=== PATIENT | male | born 1970 | race Caucasian/White ===

== ENCOUNTER → 2017-12-19 | Outpatient (CLI) | payer OTHER ==
--- NOTE | 2017-12-19 10:20 | DIAGNOSTIC IMAGING REPORT ---
CHEST 2 VIEWS ROUTINE CLINICAL HISTORY: Acute upper respiratory infection. Shortness of breath and cough. COMPARISON STUDY: No previous studies for comparison. FINDINGS: There is mild right upper lung airspace opacity which favors pneumonia. No cavitation or pleural effusion is noted. Left lung is clear. Cardiac size is normal. Mediastinal contours are normal. There is no evidence for pulmonary edema. IMPRESSION: Mild right upper lung airspace opacity which suggests pneumonia. Radiographic follow-up to ensure resolution is recommended. Electronically signed by: Hitesh Bobby M.D. 12/19/2017 10:19 AM Dictated Date/Time: 12/19/2017 10:17 AM
== END | disposition home or self-care (01) ==
LOC: C.RAD1850 10:01
PROVIDERS: ATTEND Student in an Organized Health Care Education/Training Program
DX: J06.9 Acute upper respiratory infection, unspecified (principal)

== ENCOUNTER → 2018-01-11 | Outpatient (CLI) | payer OTHER ==
--- NOTE | 2018-01-11 12:15 | DIAGNOSTIC IMAGING REPORT ---
CHEST 2 VIEWS ROUTINE HISTORY: 47 years-old Male J18.9 follow-up study in a patient with pneumonia COMPARISON: Chest radiographs 12/19/2017 TECHNIQUE: PA and lateral views of the chest FINDINGS: Cardiomediastinal and hilar silhouettes are within normal limits. There is no pneumothorax, pleural effusion, focal airspace consolidation or overt pulmonary edema. Previously described alveolar opacities of the right upper lobe are no longer identified. Bones of the chest appear grossly intact. IMPRESSION: Resolution of the previously described alveolar opacities of the right upper lobe. No acute process identified. The above report was generated using voice recognition software. It may contain grammatical, syntax or spelling errors. Electronically signed by: Zac Estrada M.D. 01/11/2018 12:13 PM Dictated Date/Time: 01/11/2018 12:12 PM
== END | disposition home or self-care (01) ==
LOC: C.RAD1850 11:59
PROVIDERS: ATTEND Student in an Organized Health Care Education/Training Program
DX: J18.9 Pneumonia, unspecified organism (principal)

== ENCOUNTER 2023-06-01 21:07 | Observation (INO) ==
--- NOTE | 2023-06-01 21:17 | Emergency Department Note ---
ED Provider Note History of Present Illness Chief Complaint: Illness Stated Complaint: LOSS APPETITE,STOMACH BUG,R SIDE PAIN Time Seen by Provider: 06/01/23 21:16 This is an otherwise healthy 53-year-old male accompanied by his who p resents to the emergency department with right lower abdominal pain and nausea. Symptoms began this morning. He states that he woke up and was feeling queasy. He did not want to eat much today and almost felt like he was going to throw up at one point, though he did not vomit. His queasiness ended up developing into 6 out of 10 right lower abdominal pain that is now constant in nature and worse when he presses on it. Also seems to be exacerbated when he changes position. He has had chills but no documented fevers. Has not had any diarrhea. He does not have any upper respiratory symptoms. No history of any abdominal surgeries. Recently completed the local [employer] triathlon and states that he was feeling very good over the past 2 days. He has been staying hydrated drinking plenty of fluids. Denies any dysuria, hematuria, difficulty urinating, scrotal swelling or testicular pain. Home Medications Medication Instructions Recorded Confirmed Type tamsulosin 0.4 mg capsule 0.4 mg PO HS 30 days #30 caps 08/12/22 06/01/23 Rx Allergies Allergy/AdvReac Type Severity Reaction Status Date / Time amoxicillin AdvReac Intermediate Vomiting Verified 06/01/23 22:13 sulfa drugs Allergy Intermediate Hives Uncoded 06/01/23 22:13 Past Med/Surg History Medical History BPH (benign prostatic hyperplasia) Surgical History H/O vasectomy History of reduction of closed dislocation LUE History of wisdom tooth extraction Family History Grandfather (Maternal) Prostate cancer Grandfather (Paternal) Stroke Mother Breast cancer Other No family history of adverse response to anesthesia Social History Smoking Status: Never smoker Second Hand Exposure: No; Do You Dip or Chew Tobacco: No; Hx Alcohol Use: Yes Alcohol type: beer Hx Substance Use: No Preferred Language: Sinhala Communication Ability: Effective [employer] Manager Required: No Beliefs That Will Affect Care: None marital status: Current Living Situation: Spouse Feels Safe at Home: Yes Assistive Devices: None Physical Exam Vital Signs Vital Signs - 24 hr 06/01/23 21:08 Temperature 99.3 F Temperature Source Oral Pulse Rate 82 Respiratory Rate 18 Respiratory Effort / Characteristics Non-Labored Spontaneous Respiratory Depth Normal Blood Pressure 149/92 H Blood Pressure Mean 111 Blood Pressure Position Sitting Pulse Oximetry 98 Oxygen Delivery Method Room Air Sepsis Recent Fever Within 48 Hours No Sepsis New/Unexplained Change in Mental Status No Sepsis Action Taken by Nursing No Action Required CONSTITUTIONAL: Well developed, well nourished, in no acute distress. HEAD: Normocephalic, atraumatic. EYES: conjunctivae normal, extraocular muscles intact. ENMT: External ears normal. Nose with normal external appearance, no congestion. Oral mucous membranes moist. Oropharynx normal. NECK: Full active range of motion. LYMPHATIC: No cervical adenopathy RESPIRATORY: Breathing unlabored and symmetric. Lungs clear to auscultation bilaterally. No wheeze, rales, or rhonchi. CARDIOVASCULAR: Regular rate and rhythm. No murmurs, rubs, or gallops. ABDOMEN: Normal bowel sounds. Abdomen is slightly rigid with some guarding especially with palpation in the right lower quadrant which is tender to palpation. Negative CVA tenderness bilaterally. Positive rebound tenderness. Negative straight leg raise, obturator, or Rovsing sign. MUSCULOSKELETAL: Moves all extremities at all joints without pain or difficulty. No cyanosis or edema. Back with full range of motion. SKIN: [place], warm, dry. NEUROLOGIC: Awake, alert, oriented. Gaze is conjugate. Face symmetric, speech normal. Moves head and all four extremities spontaneously. Sensation and strength grossly intact. PSYCHIATRIC: Appropriate. Normal affect Course Administered Medications Discontinued Medications Acetaminophen (Ofirmev) 1,000 mg in 100 mls @ 400 mls/hr IV NOW STA Stop: 06/01/23 21:48 Last Infusion: 06/01/23 22:46 Dose: 0 mls/hr Documented By: Admin: 06/01/23 21:44 Dose: 400 mls/hr Documented By: DEREK Sodium Chloride (Nss) 500 mls @ 999 mls/hr IV .Q31M ONE Stop: 06/01/23 22:04 Last Infusion: 06/01/23 22:46 Dose: 0 mls/hr Documented By: Admin: 06/01/23 21:45 Dose: 999 mls/hr Documented By: DEREK Ioversol (Optiray 320 100ml) 100 ml IV ONCE ONE Stop: 06/01/23 22:48 Last Admin: 06/01/23 22:48 Dose: 93 ml Documented By: DANIA Ondansetron HCl (Ondansetron Inj 2 Mg/Ml 2 Ml Vial) 4 mg IV NOW STA Stop: 06/01/23 21:35 Last Admin: 06/01/23 21:44 Dose: 4 mg Documented By: DEREK Medical Decision Making Differential Diagnosis Appendicitis, mesenteric adenitis, diverticulitis, hernia, muscle strain, gastroenteritis, UTI, renal colic, cholecystitis, cholelithiasis, doubt torsion, doubt epididymitis, among other pathology Medical Records Attestation: I reviewed the patient's medical records. Laboratory Data 06/01/23 21:28 06/01/23 21:28 Lab Results 06/01/23 06/01/23 Range/Units 21:28 21:28 WBC 14.23 H (4.8-10.8) K/ul RBC 4.95 (4.70-6.10) M/uL Hgb 15.7 (14.0-18.0) g/dl Hct 44.5 (42.0-52.0) % MCV 89.9 (80.0-100.0) fL MCH 31.7 (25.0-34.0) pg MCHC 35.3 (32.0-36.0) g/dL RDW Std Deviation 39.3 (36.4-46.3) fL RDW Coeff of Shama 11.9 (11.5-14.5) % Plt Count 253 (130-400) K/uL MPV 11.0 (9.4-12.4) fL Immature Gran % (Auto) 0.4 % Neut % (Auto) 81.3 % Lymph % (Auto) 9.4 % [place] % (Auto) 7.9 % Eos % (Auto) 0.7 % Baso % (Auto) 0.3 % Neut # (Auto) 11.57 H (1.40-6.50) K/uL Lymph # (Auto) 1.34 (1.2-3.4) K/uL [place] # (Auto) 1.12 H (0.11-0.59) K/uL Eos # (Auto) 0.10 (0-0.50) K/uL Baso # (Auto) 0.04 (0-0.2) K/uL Immature Gran # (Auto) 0.06 (0.01-0.20) K/uL Sodium 136 (136-145) mmol/L Potassium 3.7 (3.5-5.1) mmol/L Chloride 100 (98-107) mmol/L Carbon Dioxide 29 (21-32) mmol/L Anion Gap 7 (3-11) BUN 14 (6-23) mg/dl Creatinine 0.99 (0.6-1.4) mg/dl Est Cr Clr Drug Dosing 98.1 ml/min Est GFR ( Amer) 101.8 ml/min Est GFR (Non-Af Amer) 87.8 ml/min BUN/Creatinine Ratio 14.1 (10-20) Glucose 104 H (70-99(Fasting)) mg/dl Calcium 9.3 (8.6-10.3) mg/dl Total Bilirubin 1.0 (0.2-1.0) mg/dl AST 133 H (13-39) U/L ALT 63 H (7-52) U/L Alkaline Phosphatase 81 (34-104) U/L Total Protein 7.3 (6.0-8.3) gm/dl Albumin 4.3 (3.4-5.0) gm/dl Globulin 3.0 (2.5-4.0) gm/dl Albumin/Globulin Ratio 1.4 (0.9-2) Lipase 17 (11-82) U/L Imaging Data Radiologist's Impression: Abdomen/Pelvis CT 06/01/23 21:34 CR Exam(s): CT ABDOMEN + PELVIS With Contrast IV Amt: 93 ml optiray 320 EXAM: CT Abdomen and Pelvis With Intravenous Contrast CLINICAL HISTORY: Reason for exam: RLQ pain, nausea, tender in RLQ. TECHNIQUE: Axial computed tomography images of the abdomen and pelvis with intravenous contrast. CTDI is 24.51 mGy and DLP is 1301.23 mGy-cm. Automated exposure control was utilized for the study. A dose lowering technique was utilized adhering to the principles of ALARA. CONTRAST: Patient received 93 ml optiray 320 of IV contrast COMPARISON: No relevant prior studies available. FINDINGS: Lung bases: Unremarkable. No mass. No consolidation. ABDOMEN: Liver: Unremarkable. No mass. Gallbladder and bile ducts: Unremarkable. No calcified stones. No ductal dilation. Pancreas: Unremarkable. No mass. No ductal dilation. Spleen: Unremarkable. No splenomegaly. Adrenals: Unremarkable. No mass. Kidneys and ureters: Unremarkable. No solid mass. No hydronephrosis. Stomach and bowel: Unremarkable. No obstruction. No mucosal thickening. PELVIS: Appendix: Multiple appendicoliths noted throughout the appendix. The largest appendicolith proximally measures 11 mm in diameter. Immediately distal to the appendicolith, the appendix is dilated, measuring 11 mm with subtle periappendiceal fat stranding. Bladder: Mild trabeculation of the superior dome of the bladder. There is a posterior bladder diverticulum measuring 4.7 x 7.7 x 6 cm. The communicating neck measures 10 mm. Reproductive: Unremarkable as visualized. ABDOMEN and PELVIS: Intraperitoneal space: Unremarkable. No free air. No significant fluid collection. Bones/joints: No acute fracture. No dislocation. Soft tissues: Unremarkable. Vasculature: Unremarkable. No abdominal aortic aneurysm. Lymph nodes: Unremarkable. No enlarged lymph nodes. IMPRESSION: 1. Multiple appendicoliths noted throughout the appendix. The largest appendicolith proximally measures 11 mm in diameter. Immediately distal to the proximal appendicolith, the appendix is dilated, measuring 11 mm with subtle periappendiceal fat stranding. Findings are most consistent with acute appendicitis. No abscess or perforation. No bowel obstruction. 2. Mild trabeculation of the superior dome of the bladder. There is a posterior bladder diverticulum measuring 4.7 x 7.7 x 6 cm. The communicating neck measures 10 mm. Communications: Call Doctor Appendicitis Electronically signed by: Kimo Hernandez MD 06/01/23 22:59 PM [facility] Narrative He 53-year-old male presents to the emergency department with 1 day of GI upset, nausea, and this has developed into right lower abdominal pain with associated anorexia. Patient recently completed the [employer] triathlon. Overall he is well-appearing in no acute distress. He does involuntary guard his abdomen and has reproducible tenderness in the right lower quadrant. Temperature was 99.3 and he endorsed chills. An IV was inserted and labs were obtained. Gentle IV fluids were administered. He was offered pain medication and accepted Tylenol IV, declined anything stronger. He received Zofran for nausea. Labs demonstrate a leukocytosis at 14.23. No anemia. AST and ALT are mildly elevated at 133 and 63 respectively, nonspecific. Alkaline phosphatase and bilirubin are normal. Renal function is normal. Lipase is normal. CT abdomen and pelvis was obtained and initially interpreted by myself showing concern for possible appendicolith and inflammation in the area of the appendix. I then spoke with the reading radiologist who contacted me and confirmed appendicoliths and acute appendicitis. No evidence of perforation. Case was discussed with general surgery Dr. Ying who visualized his CT scan and will admit the patient overnight and see him first thing in the morning to discuss appendectomy. We discussed which antibiotics she would prefer given his allergy to amoxicillin, and she stated that she would order these. I discussed all this with the patient and he was agreeable. He did request a sm all dose of morphine given his pain. He remained hemodynamically stable. Impression Acute appendicitis Discharge Plan Visit Data Chief Complaint: Illness Stated Complaint: LOSS APPETITE,STOMACH BUG,R SIDE PAIN ED Provider: Marshal Ladd ED Midlevel Provider: Jaleel Brunner Discharge Problem: Acute appendicitis Patient Disposition: Admitted As Inpatient Forms Stand Alone Forms: My [facility] BI Prescriptions Prescriptions: No Action tamsulosin 0.4 mg capsule 0.4 mg PO HS 30 Days Qty: 30 11RF Referrals Referrals: Tammy Palmer [Primary Care Provider] -
[2023-06-01] MEDS ORDERED: ACETAMINOPHEN 1,000 MG/100 ML VIAL IV STA (21:34)
[2023-06-01] MEDS ORDERED: ONDANSETRON INJ 2 MG/ML 2 ML VIAL IV STA (21:34)
[2023-06-01] MEDS ORDERED: SODIUM CHLORIDE 0.9% 500 ML IV ONE (21:34)
[2023-06-01 22:06] LABS: Basophils # (auto) 0.04 K/uL (0-0.2); Basophils % (auto) 0.3 %; Eosinophils % (auto) 0.7 %; Hematocrit (blood only) 44.5 % (42.0-52.0); Hemoglobin 15.7 g/dl (14.0-18.0); Immature Granulocytes # (auto) 0.06 K/uL (0.01-0.20); Immature Granulocytes % (auto) 0.4 %; Lymphocytes # (auto) 1.34 K/uL (1.2-3.4); Lymphocytes % (auto) 9.4 %; Mean Corpuscular Hemoglobin 31.7 pg (25.0-34.0); Mean Corpuscular Hgb Conc 35.3 g/dL (32.0-36.0); Mean Corpuscular Volume 89.9 fL (80.0-100.0); Monocytes # (auto) 1.12 K/uL (0.11-0.59); Monocytes % (auto) 7.9 %; Neutrophils # (auto) 11.57 K/uL (1.40-6.50); Neutrophils % (auto) 81.3 %; Platelet Count 253 K/uL (130-400); RDW Coefficient of Variation 11.9 % (11.5-14.5); RDW Standard Deviation 39.3 fL (36.4-46.3); Red Blood Count 4.95 M/uL (4.70-6.10); White Blood Count 14.23 K/ul (4.8-10.8)
[2023-06-01 22:21] LABS: Albumin Level 4.3 gm/dl (3.4-5.0); Calcium 9.3 mg/dl (8.6-10.3); Potassium 3.7 mmol/L (3.5-5.1)
[2023-06-01 22:27] LABS: Albumin Globulin Ratio 1.4 (0.9-2); BUN Creatinine Ratio 14.1 (10-20); Creatinine Clr Calc Pharmacy 98.1 ml/min; Est GFR (African American) 101.8 ml/min; Est GFR (Non-African American) 87.8 ml/min; Total Protein 7.3 gm/dl (6.0-8.3)
[2023-06-01] MEDS ORDERED: OPTIRAY 320 100ml IV ONE (22:47)
--- NOTE | 2023-06-01 23:00 | CT Scan Report ---
Exam(s): CT ABDOMEN + PELVIS With Contrast IV Amt: 93 ml optiray 320 EXAM: CT Abdomen and Pelvis With Intravenous Contrast CLINICAL HISTORY: Reason for exam: RLQ pain, nausea, tender in RLQ. TECHNIQUE: Axial computed tomography images of the abdomen and pelvis with intravenous contrast. CTDI is 24.51 mGy and DLP is 1301.23 mGy-cm. Automated exposure control was utilized for the study. A dose lowering technique was utilized adhering to the principles of ALARA. CONTRAST: Patient received 93 ml optiray 320 of IV contrast COMPARISON: No relevant prior studies available. FINDINGS: Lung bases: Unremarkable. No mass. No consolidation. ABDOMEN: Liver: Unremarkable. No mass. Gallbladder and bile ducts: Unremarkable. No calcified stones. No ductal dilation. Pancreas: Unremarkable. No mass. No ductal dilation. Spleen: Unremarkable. No splenomegaly. Adrenals: Unremarkable. No mass. Kidneys and ureters: Unremarkable. No solid mass. No hydronephrosis. Stomach and bowel: Unremarkable. No obstruction. No mucosal thickening. PELVIS: Appendix: Multiple appendicoliths noted throughout the appendix. The largest appendicolith proximally measures 11 mm in diameter. Immediately distal to the appendicolith, the appendix is dilated, measuring 11 mm with subtle periappendiceal fat stranding. Bladder: Mild trabeculation of the superior dome of the bladder. There is a posterior bladder diverticulum measuring 4.7 x 7.7 x 6 cm. The communicating neck measures 10 mm. Reproductive: Unremarkable as visualized. ABDOMEN and PELVIS: Intraperitoneal space: Unremarkable. No free air. No significant fluid collection. Bones/joints: No acute fracture. No dislocation. Soft tissues: Unremarkable. Vasculature: Unremarkable. No abdominal aortic aneurysm. Lymph nodes: Unremarkable. No enlarged lymph nodes. IMPRESSION: 1. Multiple appendicoliths noted throughout the appendix. The largest appendicolith proximally measures 11 mm in diameter. Immediately distal to the proximal appendicolith, the appendix is dilated, measuring 11 mm with subtle periappendiceal fat stranding. Findings are most consistent with acute appendicitis. No abscess or perforation. No bowel obstruction. 2. Mild trabeculation of the superior dome of the bladder. There is a posterior bladder diverticulum measuring 4.7 x 7.7 x 6 cm. The communicating neck measures 10 mm. Communications: Call Doctor Appendicitis Electronically signed by: Kimo Hernandez MD 06/01/23 22:59 PM
[2023-06-01] MEDS ORDERED: MoRPHine SULFATE 2 MG/ML CARP IV STA (23:32)
[2023-06-02 00:50] LABS: Appearance Urine Clear (Clear); Bilirubin Urine Negative (Negative); Blood Urine Negative (Negative); Color Urine Yellow; Glucose Urine UA Negative (Negative); Ketones Urine Negative (Negative); Leukocyte Esterase Urine Negative (Negative); Nitrite Urine Negative (Negative); Protein Urine Negative (Negative); Specific Gravity Urine 1.012 (1.000-1.030); Urobilinogen Urine Negative (Negative)
[2023-06-02] MEDS ORDERED: ONDANSETRON INJ 2 MG/ML 2 ML VIAL IV PRN ×2 (01:50→08:35)
[2023-06-02] MEDS ORDERED: MoRPHine SULFATE 2 MG/ML CARP IV PRN (01:50)
[2023-06-02] MEDS ORDERED: MoRPHine SULFATE 4 MG/ML 1 ML CARP\\VIAL IV PRN (01:50)
[2023-06-02] MEDS ORDERED: LACTATED RINGER'S 1,000 ML IV SCH ×2 (01:50→11:16)
[2023-06-02] MEDS ORDERED: levoFLOXacin/D5W 750 MG/150 ML BAG IV SCH (02:00)
--- NOTE | 2023-06-02 07:57 | History & Physical Report ---
Date of Service June 02, 2023 Assessment & Plan (1) Acute appendicitis: Plan: 53 year-old male with 1 day history of right lower quadrant abdominal pain, nausea, anorexia with CT scan showing acute appendicitis with appendicolith. No evidence of perforation or abscess. Will plan to take to operating room for laparoscopic appendectomy at earliest convenience. Dr. Fermin discussed procedure , risks, expected recovery, and obtained informed consent. See addendum for further recommendations/plan. Admission and Anticipated Discharge Date Admission Date: June 01, 2023 History of Present Illness Chief Complaint: abdominal pain Primary Care Provider: Tammy Palmer Rogelio is a healthy 53 year old male who presented to ED last evening with complaint of right lower abdominal pain with associated nausea , mild fever, and low appetite. No vomiting. Never had pain like this before. 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 Denies any prior abdominal surgeries. No blood thinning agents. CT scan showing multiple appendicolith with dilated appendix and mild periappendiceal stranding consistent with acute appendicitis. WBC elevated at 14k. Allergies Allergy/AdvReac Type Severity Reaction Status Date / Time Sulfa (Sulfonamide Allergy Intermediate Hives Verified 06/02/23 01:52 Antibiotics) amoxicillin AdvReac Intermediate Vomiting Verified 06/01/23 22:13 Home Medications Medication Instructions Recorded Confirmed Type tamsulosin 0.4 mg capsule 0.4 mg PO HS 30 days #30 caps 08/12/22 06/01/23 Rx Past Med/Surg History Medical History BPH (benign prostatic hyperplasia) Surgical History H/O vasectomy History of reduction of closed dislocation LUE History of wisdom tooth extraction Family History Grandfather (Maternal) Prostate cancer Grandfather (Paternal) Stroke Mother Breast cancer Other No family history of adverse response to anesthesia Social History Smoking Status: Never smoker Second Hand Exposure: No; Do You Dip or Chew Tobacco: No; Tobacco Cessation Education Requested by Patient: No Hx Alcohol Use: Yes Alcohol type: beer Hx Substance Use: No Preferred Language: Maori Communication Ability: Effective Backup Administrative Coordinator Required: No Beliefs That Will Affect Care: None marital status: Current Living Situation: Spouse Other Information That Helps Us Care for You: No Feels Safe at Home: Yes Safety Concerns: Feels Safe At This Time Assistive Devices: Glasses Review of Systems Review of Systems: All systems reviewed & are unremarkable except as noted in HPI & below Physical Exam Constitutional: WD/WN, vitals as above cooperative and comfortable; no acute distress and not ill appearing Respiratory: normal respiratory effort, lungs clear to auscultation Cardiovascular: Rate/Rhythm: regular rate and regular rhythm Gastrointestinal (Abdomen): Inspection/Auscultation: abdomen normal to inspection; abdomen not distended Percussion/Palpation: + abdomen tender (RLQ), + guarding (voluntary RLQ) and abdomen soft; abdomen not rigid and abdomen not firm positive Rosvigs and Mcburney's point Skin: no rashes, warm and dry Psychiatric: A+Ox3, euthymic affect Results & Data Results & Data Vital Signs (Past 12 Hours) Vital Signs Temp Pulse Pulse Pulse Resp BP BP 06/02/23 07:11 36.8 C 65 16 123/72 06/02/23 04:52 56 L 18 110/65 06/02/23 01:51 37.1 C 61 18 135/88 06/02/23 00:10 77 06/02/23 01:30 62 19 109/57 L 06/02/23 01:00 67 22 95/53 L 06/02/23 00:30 102/56 L 06/02/23 00:30 58 L 18 06/02/23 00:27 74 13 06/01/23 21:08 37.4 C 82 18 149/92 H Pulse Ox O2 Del Method 06/02/23 07:11 94 Room Air 06/02/23 04:52 95 Room Air 06/02/23 01:51 94 Room Air 06/02/23 00:10 06/02/23 01:30 94 06/02/23 01:00 95 06/02/23 00:30 06/02/23 00:30 93 06/02/23 00:27 95 06/01/23 21:08 98 Room Air Laboratory Results 06/02/23 06/02/23 06/01/23 Range/Units 00:48 00:39 21:28 WBC (4.8-10.8) K/ul RBC (4.70-6.10) M/uL Hgb (14.0-18.0) g/dl Hct (42.0-52.0) % MCV (80.0-100.0) fL MCH (25.0-34.0) pg MCHC (32.0-36.0) g/dL RDW Std Deviation (36.4-46.3) fL RDW Coeff of Shama (11.5-14.5) % Plt Count (130-400) K/uL MPV (9.4-12.4) fL Immature Gran % (Auto) % Neut % (Auto) % Lymph % (Auto) % Amador % (Auto) % Eos % (Auto) % Baso % (Auto) % Neut # (Auto) (1.40-6.50) K/uL Lymph # (Auto) (1.2-3.4) K/uL Amador # (Auto) (0.11-0.59) K/uL Eos # (Auto) (0-0.50) K/uL Baso # (Auto) (0-0.2) K/uL Immature Gran # (Auto) (0.01-0.20) K/uL Sodium 136 (136-145) mmol/L Potassium 3.7 (3.5-5.1) mmol/L Chloride 100 (98-107) mmol/L Carbon Dioxide 29 (21-32) mmol/L Anion Gap 7 (3-11) BUN 14 (6-23) mg/dl Creatinine 0.99 (0.6-1.4) mg/dl Est Cr Clr Drug Dosing 98.1 ml/min Est GFR ( Amer) 101.8 ml/min Est GFR (Non-Af Amer) 87.8 ml/min BUN/Creatinine Ratio 14.1 (10-20) Glucose 104 H (70-99(Fasting)) mg/dl Calcium 9.3 (8.6-10.3) mg/dl Total Bilirubin 1.0 (0.2-1.0) mg/dl AST 133 H (13-39) U/L ALT 63 H (7-52) U/L Alkaline Phosphatase 81 (34-104) U/L Total Protein 7.3 (6.0-8.3) gm/dl Albumin 4.3 (3.4-5.0) gm/dl Globulin 3.0 (2.5-4.0) gm/dl Albumin/Globulin Ratio 1.4 (0.9-2) Lipase 17 (11-82) U/L Urine Color Yellow Urine Appearance Clear (Clear) Urine pH 7.0 (4.5-7.5) Ur Specific [place] 1.012 (1.000-1.030) Urine Protein Negative (Negative) Urine Glucose (UA) Negative (Negative) Urine Ketones Negative (Negative) Urine Blood Negative (Negative) Urine Nitrite Negative (Negative) Urine Bilirubin Negative (Negative) Urine Urobilinogen Negative (Negative) Ur Leukocyte Esterase Negative (Negative) SARS-CoV-2, RNA, NAAT NEGATIVE (NEGATIVE) 06/01/23 Range/Units 21:28 WBC 14.23 H (4.8-10.8) K/ul RBC 4.95 (4.70-6.10) M/uL Hgb 15.7 (14.0-18.0) g/dl Hct 44.5 (42.0-52.0) % MCV 89.9 (80.0-100.0) fL MCH 31.7 (25.0-34.0) pg MCHC 35.3 (32.0-36.0) g/dL RDW Std Deviation 39.3 (36.4-46.3) fL RDW Coeff of Shama 11.9 (11.5-14.5) % Plt Count 253 (130-400) K/uL MPV 11.0 (9.4-12.4) fL Immature Gran % (Auto) 0.4 % Neut % (Auto) 81.3 % Lymph % (Auto) 9.4 % Amador % (Auto) 7.9 % Eos % (Auto) 0.7 % Baso % (Auto) 0.3 % Neut # (Auto) 11.57 H (1.40-6.50) K/uL Lymph # (Auto) 1.34 (1.2-3.4) K/uL Amador # (Auto) 1.12 H (0.11-0.59) K/uL Eos # (Auto) 0.10 (0-0.50) K/uL Baso # (Auto) 0.04 (0-0.2) K/uL Immature Gran # (Auto) 0.06 (0.01-0.20) K/uL Sodium (136-145) mmol/L Potassium (3.5-5.1) mmol/L Chloride (98-107) mmol/L Carbon Dioxide (21-32) mmol/L Anion Gap (3-11) BUN (6-23) mg/dl Creatinine (0.6-1.4) mg/dl Est Cr Clr Drug Dosing ml/min Est GFR ( Amer) ml/min Est GFR (Non-Af Amer) ml/min BUN/Creatinine Ratio (10-20) Glucose (70-99(Fasting)) mg/dl Calcium (8.6-10.3) mg/dl Total Bilirubin (0.2-1.0) mg/dl AST (13-39) U/L ALT (7-52) U/L Alkaline Phosphatase (34-104) U/L Total Protein (6.0-8.3) gm/dl Albumin (3.4-5.0) gm/dl Globulin (2.5-4.0) gm/dl Albumin/Globulin Ratio (0.9-2) Lipase (11-82) U/L Urine Color Urine Appearance (Clear) Urine pH (4.5-7.5) Ur Specific Gardiner (1.000-1.030) Urine Protein (Negative) Urine Glucose (UA) (Negative) Urine Ketones (Negative) Urine Blood (Negative) Urine Nitrite (Negative) Urine Bilirubin (Negative) Urine Urobilinogen (Negative) Ur Leukocyte Esterase (Negative) SARS-CoV-2, RNA, NAAT (NEGATIVE) Diagnostic Findings Exam(s): CT ABDOMEN + PELVIS With Contrast IV Amt: 93 ml optiray 320 EXAM: CT Abdomen and Pelvis With Intravenous Contrast CLINICAL HISTORY: Reason for exam: RLQ pain, nausea, tender in RLQ. TECHNIQUE: Axial computed tomography images of the abdomen and pelvis with intravenous contrast. CTDI is 24.51 mGy and DLP is 1301.23 mGy-cm. Automated exposure control was utilized for the study. A dose lowering technique was utilized adhering to the principles of ALARA. CONTRAST: Patient received 93 ml optiray 320 of IV contrast COMPARISON: No relevant prior studies available. FINDINGS: Lung bases: Unremarkable. No mass. No consolidation. ABDOMEN: Liver: Unremarkable. No mass. Gallbladder and bile ducts: Unremarkable. No calcified stones. No ductal dilation. Pancreas: Unremarkable. No mass. No ductal dilation. Spleen: Unremarkable. No splenomegaly. Adrenals: Unremarkable. No mass. Kidneys and ureters: Unremarkable. No solid mass. No hydronephrosis. Stomach and bowel: Unremarkable. No obstruction. No mucosal thickening. PELVIS: Appendix: Multiple appendicoliths noted throughout the appendix. The largest appendicolith proximally measures 11 mm in diameter. Immediately distal to the appendicolith, the appendix is dilated, measuring 11 mm with subtle periappendiceal fat stranding. Bladder: Mild trabeculation of the superior dome of the bladder. There is a posterior bladder diverticulum measuring 4.7 x 7.7 x 6 cm. The communicating neck measures 10 mm. Reproductive: Unremarkable as visualized. ABDOMEN and PELVIS: Intraperitoneal space: Unremarkable. No free air. No significant fluid collection. Bones/joints: No acute fracture. No dislocation. Soft tissues: Unremarkable. Vasculature: Unremarkable. No abdominal aortic aneurysm. Lymph nodes: Unremarkable. No enlarged lymph nodes. IMPRESSION: 1. Multiple appendicoliths noted throughout the appendix. The largest appendicolith proximally measures 11 mm in diameter. Immediately distal to the proximal appendicolith, the appendix is dilated, measuring 11 mm with subtle periappendiceal fat stranding. Findings are most consistent with acute appendicitis. No abscess or perforation. No bowel obstruction. 2. Mild trabeculation of the superior dome of the bladder. There is a posterior bladder diverticulum measuring 4.7 x 7.7 x 6 cm. The communicating neck measures 10 mm. Code Status & VTE Plan VTE Prophylaxis Plan VTE Prophylaxis will be ordered: Yes Supervising Physician Co-Signing Physician Notes I have seen and examined the patient personally and agree with the above assessment and plan. In brief he has appendicitis. We have discussed the risks and benefits of a laparoscopic appendectomy. All his questions were answered, and he is agreeable to proceed. Consent has been obtained. We will take him to the operating room at the earliest convenience. (1) Acute appendicitis Acute appendicitis type: with localized peritonitis Appendicitis abscess presence: without abscess Appendicitis gangrene presence: without gangrene Appendicitis perforation presence: without perforation Qualified Code(s): K35.30 - Acute appendicitis with localized peritonitis, without perforation or gangrene
[2023-06-02] MEDS ORDERED: fentaNYL citrate PF 100 MCG/2 ML VIAL ONE (08:15)
[2023-06-02] MEDS ORDERED: SUGAMMADEX SODIUM 200 MG/2 ML VIAL IV ONE (08:16)
[2023-06-02] MEDS ORDERED: MIDAZOLAM HCL 1 MG/ML 2ML VIAL ONE (08:16)
[2023-06-02] MEDS ORDERED: ONDANSETRON INJ 2 MG/ML 2 ML VIAL ONE (08:17)
[2023-06-02] MEDS ORDERED: DEXAMETHASONE SOD INJ 4 MG/ML VIAL ONE (08:17)
[2023-06-02] MEDS ORDERED: PROPOFOL IV EMULSION 10 MG/ML 20 ML VIAL IV ONE ×2 (08:17→12:48)
[2023-06-02] MEDS ORDERED: SODIUM CHLORIDE 0.9% PF INJ 10 ML VIAL ONE (08:17)
[2023-06-02] MEDS ORDERED: LIDOCAINE 2% 2 ML VIAL/AMP(20MG/ML) INFIL ONE (08:17)
[2023-06-02] MEDS ORDERED: diphenhydrAMINE 50 MG/ML VIAL ONE (08:17)
[2023-06-02] MEDS ORDERED: ROCURONIUM BROMIDE 10 MG/ML 5 ML VIAL IV ONE (08:17)
[2023-06-02] MEDS ORDERED: FAMOTIDINE/PF 20 MG/2 ML VIAL IV ONE (08:18)
[2023-06-02] MEDS ORDERED: BUPIVACAINE/EPINEPHRINE 0.5% MPF 1:200,000 30 ML VIAL ONE (08:22)
[2023-06-02] MEDS ORDERED: ATROPINE SULFATE 0.1 MG/ML 10ML SYR IV PRN (08:35)
[2023-06-02] MEDS ORDERED: ePHEDrine sulfate 50 MG/ML AMP IV PRN (08:35)
[2023-06-02] MEDS ORDERED: HYDROmorphone INJ 2 MG/ML SYR/VIAL IV PRN (08:35)
[2023-06-02] MEDS ORDERED: PROMETHAZINE HCL 12.5 MG in SODIUM CHLORIDE 0.9% 50 ML IV PRN (08:35)
--- NOTE | 2023-06-02 08:35 | Anesthesiology Consultation ---
Date of Service June 02, 2023 Assessment & Plan Chart Review Chart Review: Acceptable Risk for Surgery Consults Requested none History Surgery Operation Date: 06/02/23 10:20 Proposed Procedures p Laparoscopic Appendectomy - Paul Fermin MD Height/Weight Height: 5 ft 9 in Weight: 90 kg Allergies Allergy/AdvReac Type Severity Reaction Status Date / Time Sulfa (Sulfonamide Allergy Intermediate Hives Verified 06/02/23 01:52 Antibiotics) amoxicillin AdvReac Intermediate Vomiting Verified 06/01/23 22:13 Medications Home Medications Medication Instructions Recorded Confirmed Last Taken tamsulosin 0.4 mg capsule 0.4 mg PO HS 30 days #30 caps 08/12/22 06/01/23 06/01/23 Active Medications Generic Name Dose Route Start Last Admin Trade Name Freq PRN Reason Stop Dose Admin Lactated Ringer's 1,000 mls @ 100 mls/hr 06/02/23 01:50 06/02/23 08:18 Lr IV 07/02/23 01:49 0 mls/hr .Q10H ROSELINE Infusion Levofloxacin/Dextrose 750 mg in 150 mls @ 100 mls/hr 06/02/23 02:00 06/02/23 03:55 Levaquin/D5w IV 06/06/23 01:59 Infused Q24H ROSELINE Infusion Protocol Morphine Sulfate 2 mg 06/02/23 01:50 06/02/23 03:04 Morphine Sulfate 2 Mg/Ml Carp IV 06/16/23 01:49 2 mg Q3H PRN Administration Pain (1,2,3,4,5) & Pre PT Past Medical History Medical History BPH (benign prostatic hyperplasia) Past Family History Family History Grandfather (Maternal) Prostate cancer Grandfather (Paternal) Stroke Mother Breast cancer Other No family history of adverse response to anesthesia Past Surgical History Surgical History H/O vasectomy History of reduction of closed dislocation LUE History of wisdom tooth extraction Social History Smoking Status: Never smoker Do You Dip or Chew Tobacco: No Hx Alcohol Use: Yes Alcohol type: beer alcohol intake frequency: holidays/special occasions only Hx Substance Use: No substance use type: does not use Physical Exam Vital Signs Last Vital Signs Temp 36.8 C 06/02/23 07:11 Pulse 65 06/02/23 07:11 Resp 16 06/02/23 07:11 BP 123/72 06/02/23 07:11 Pulse Ox 94 06/02/23 07:11 O2 Del Method Room Air 06/02/23 07:11 Testing Laboratory Results 06/01/23 21:28 06/01/23 21:28 Urine Color Yellow 06/02/23 00:39 Urine Appearance Clear (Clear) 06/02/23 00:39 Urine pH 7.0 (4.5-7.5) 06/02/23 00:39 Ur Specific [place] 1.012 (1.000-1.030) 06/02/23 00:39 Urine Protein Negative (Negative) 06/02/23 00:39 Urine Glucose (UA) Negative (Negative) 06/02/23 00:39 Urine Ketones Negative (Negative) 06/02/23 00:39 Urine Nitrite Negative (Negative) 06/02/23 00:39 Ur Leukocyte Esterase Negative (Negative) 06/02/23 00:39
[2023-06-02] MEDS: fentaNYL citrate PF 100 MCG/2 ML VIAL IV PRN ×4 (10:20→10:44)
[2023-06-02] MEDS ORDERED: oxyCODONE/ACETAMINOPHEN 5mg/325mg TAB PO PRN ×2 (11:16)
--- NOTE | 2023-06-02 12:05 | Operative Report ---
Post Operative Report Pre & Post Diagnosis Operation Date: 06/02/23 10:20 Pre-Op Diagnosis: Acute appendicitis Post-Op Diagnosis: Acute appendicitis I identified the patient and participated in the time-out.: Yes Procedure Operation Date: 06/02/23 10:20 Actual Procedures p Laparoscopic Appendectomy(Not Applicable) - Paul Fermin MD Surgeon Paul Fermin MD Patient Services Representative IFTIKHAR Gonzalez assisted with tissue retraction, camera op, closure Estimated Blood Loss 5 Findings Consistent with Post-Op Diagnosis Acute nonperforated appendicitis Specimens Appendix Drains None Anesthesia Type General Complications No immediate complications Description of Procedure The patient was taken to the operating room, and placed supine on the operating table. A timeout was performed, perioperative antibiotics were administered, SCD boots were placed. After adequate anesthesia and analgesia was obtained, the abdomen was prepped and draped in the normal sterile fashion. A 1 cm incision was made in the supraumbilical region and carried down to the level of the fascia. A trach hook was used to grasp the fascia and elevated and a varies needle was used to enter the abdominal cavity. The abdomen was insufflated to a pressure of 15 mmHg, and a 5 mm trocar was placed in this location. A 5 mm 30 degree laparoscope was placed into the abdominal cavity, and the abdomen was surveyed. The patient was placed in Trendelenburg and slightly to the left. One 5 mm trocar was placed in the right upper quadrant, and one 12 mm trocar was placed in the left lower quadrant under direct visualization. The right colon was identified and traced down to the cecum. The appendix was identified and elevated anteriorly and medially. A window was created at the base of the appendix with a [place] dissector. The Endo ELISEO stapler was used to transect the appendix at its base through noninflamed tissue, and subsequently the mesoappendix. The appendix was placed in an Endo Catch bag, and removed via the left lower quadrant port site. Attention was turned to hemostasis, which was excellent. The abdomen was copiously irrigated and suctioned free, and again hemostasis was found to be excellent. All trochars removed under direct visualization. The abdomen was desufflated. The fascia in the 12 mm port site was closed with a 0 Vicryl suture. The skin was closed with a running 4-0 Monocryl subcuticular stitch. Dermabond was applied. The patient tolerated the procedure without complication, and was transferred in stable condition to the PACU. All instrument, needle, and sponge counts were correct at the end of the case. My therapy administrative assistant was necessary throughout the procedure for tissue retraction, possible camera operation, and closure of the wounds. I understand that section 1842(b)(7)(D) of the Social Security act generally prohibits Medicare physician fee schedule payment for the services of assistants at surgery in teaching hospitals when qualified residents are available to furnish such services. I certify that the services for which payment is claimed were medically necessary and that no qualified resident was available to perform the services. I further understand that these services are subject to postpayment review by the Medicare carrier. I attest to the content of the Intraoperative Record and any orders documented therein. Any exceptions are noted below.
--- NOTE | 2023-06-02 12:05 | Post Operative Brief Note ---
Immediate Post Op Note v1 Date of Surgery June 02, 2023 Pre & Post Diagnosis Operation Date: 06/02/23 10:20 Pre-Op Diagnosis: Acute appendicitis Post-Op Diagnosis: Acute appendicitis I identified the patient and participated in the time-out.: Yes Procedure Operation Date: 06/02/23 10:20 Actual Procedures p Laparoscopic Appendectomy(Not Applicable) - Paul Fermin MD Surgeon Paul Fermin MD Nutrition Helper IFTIKHAR Gonzalez assisted with tissue retraction, camera op, closure Estimated Blood Loss 5 Findings Consistent with Post-Op Diagnosis Drains Mayer Catheter (16 Fr. Mayer catheter inserted by Leigh Ch RN without difficulty. Draining clear yellow urine. Output 1400ml. Removed at end of case. )
--- NOTE | 2023-06-02 12:20 | Anesthesiology Progress Note ---
Date of Service June 02, 2023 Anesthesia Post Procedure Vital Signs Vital Signs: Temp Pulse Pulse Pulse Pulse Resp BP 06/02/23 12:15 36.6 C 71 16 06/02/23 11:45 36.6 C 61 16 06/02/23 11:15 37.0 C 65 16 06/02/23 10:45 62 12 06/02/23 10:25 62 14 06/02/23 11:05 37.3 C 63 17 06/02/23 10:55 37.3 C 63 17 06/02/23 10:35 66 12 06/02/23 10:15 60 15 06/02/23 10:09 36.4 C L 69 16 06/02/23 08:38 36.7 C 68 22 06/02/23 07:11 36.8 C 65 16 06/02/23 04:52 56 L 18 06/02/23 01:51 37.1 C 61 18 06/02/23 00:10 77 06/02/23 01:30 62 19 109/57 L 06/02/23 01:00 67 22 95/53 L 06/02/23 00:30 102/56 L 06/02/23 00:30 58 L 18 06/02/23 00:27 74 13 06/01/23 21:08 37.4 C 82 18 149/92 H BP Pulse Ox O2 Del Method O2 Flow Rate 06/02/23 12:15 119/78 95 Room Air 06/02/23 11:45 119/74 93 Room Air 06/02/23 11:15 118/72 94 Room Air 06/02/23 10:45 125/66 93 Room Air 06/02/23 10:25 144/80 H 99 Oxymask 3 06/02/23 11:05 113/64 95 Room Air 06/02/23 10:55 122/70 95 Room Air 06/02/23 10:35 143/75 H 93 Room Air 06/02/23 10:15 133/73 99 Oxymask 5 06/02/23 10:09 129/87 98 Oxymask 7 06/02/23 08:38 144/79 H 94 Room Air 06/02/23 07:11 123/72 94 Room Air 06/02/23 04:52 110/65 95 Room Air 06/02/23 01:51 135/88 94 Room Air 06/02/23 00:10 06/02/23 01:30 94 06/02/23 01:00 95 06/02/23 00:30 06/02/23 00:30 93 06/02/23 00:27 95 06/01/23 21:08 98 Room Air Pain Intensity Right Abdomen: Pain Intensity: 4 Transfer of Care Handoff Completed per policy Notes Mental Status: alert / awake / arousable and participated in evaluation Patient Amnestic to Procedure: Yes Nausea / Vomiting: adequately controlled Pain: adequately controlled Airway Patency, RR, SpO2: stable & adequate BP & HR: stable & adequate Hydration State: stable & adequate Anesthetic Complications: no major complications apparent
[2023-06-02] MEDS ORDERED: TAMSULOSIN HCL 0.4 MG CAP PO SCH (21:00)
--- NOTE | 2023-06-03 09:43 | Discharge Summary ---
Date of Service June 03, 2023 Admission HPI Per Admitting Provider Rogelio is a healthy 53 year old male who presented to ED last evening with complaint of right lower abdominal pain with associated nausea , mild fever, and low appetite. No vomiting. Never had pain like this before. 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 Denies any prior abdominal surgeries. No blood thinning agents. CT scan showing multiple appendicolith with dilated appendix and mild periappendiceal stranding consistent with acute appendicitis. WBC elevated at 14k. Principal Diagnosis Acute appendicitis Discharge Data Allergies Allergy/AdvReac Type Severity Reaction Status Date / Time Sulfa (Sulfonamide Allergy Intermediate Hives Verified 06/02/23 01:52 Antibiotics) amoxicillin AdvReac Intermediate Vomiting Verified 06/01/23 22:13 Consultations 06/01/23 23:26 Consult General Surgery Stat ED Decision to Admit Stat Procedures Performed Operation Date: 06/02/23 10:20 Actual Procedures p Laparoscopic Appendectomy(Not Applicable) - Paul Fermin MD Ordered Studies 06/01/23 21:34 CT Abd and Pelvis [CT abd pelvis IV con only] Stat Hospital Course (1) Acute appendicitis: Patient was admitted to hospital from emergency department and started on IV antibiotics and kept NPO. He was taken to the operating room in the morning for laparoscopic appendectomy by Dr. Fermin on 06/02/2023. Patient found to have acute appendicitis without perforation or abscess. He was transferred back to med/surg floor for postoperative care. Diet was advanced to clear liquids and then as tolerated. Pain management as needed and activity as tolerated. Patient was evaluated in the late afternoon on POD # 0 and feeling well, minimal pain, tolerating clears, and urinating without difficulty. Diet advance to regular diet and patient was discharge home after dinner in stable condition. (2) Bladder diverticulum: Patient was found to have distended bladder with large posterior bladder diverticulum measuring up to 7 cm. Daley was placed after induction of anesthesia and he had 1400 cc of urine output immediately. He tolerated removal of Daley after laparoscopic appendectomy and had no difficulty urinating postoperatively. He was advised to follow-up with his PCP and urologist Dr. Uribe for further management if needed. Total Time Total Time Spent Total Time Spent (In Minutes): 30 minutes Total Time Includes: Examination of the Patient, Discharge Planning, Medication Reconciliation and Communication With Other Providers Discharge Plan Discharge Items Patient Disposition: Home - Self-Care Reason For Visit: ACCUTE APPENDICITIS Discharge Diagnosis: Acute appendicitis Distended bladder with bladder diverticulum Activity: Per Instructions section Non-emergency contact: Primary Care Provider and Surgeon Call non-emergency contact if: you have any medication questions, your pain is worsening, your pain is concerning for you, you have a fever, your temperature is above 101, your wound has increased redness, your wound has increased drainage and your wound pain has increased Follow-up/Referrals: Tammy Palmer [Primary Care Provider] - Diet: Regular Addtl Attending Provider Instructions: Post-Surgical ~Discharge Instructions Activity Recommendations: - lifting limitation: (20 pounds for 2-3 weeks), - exercise/sex/sports limit: (nonstrenuous for 2 weeks), - driving or machine use limit: (none for 1 week or until pain free and no longer taking narcotic pain medication), - Shower/bathe limit: (may shower beginning tomorrow) Diet: - Resume previous diet SPECIAL CARE INSTRUCTIONS: - May shower. Let water run over area and pat dry. No submerging underwater for at least 10 days. - Leave surgical glue on incisions. This will fall off on its own. - Call the surgeon's office with any questions or concerns - - (ex. temperature higher than 101 degrees F, excessive bleeding or pain). MEDICATIONS: - Resume previous medications unless instructed otherwise by your surgeon. - May alternate extra strength Tylenol and Ibuprofen as needed for mild to moderate pain -650 mg Tylenol every 6 hours as needed - Ibuprofen 600 mg every 6 hours as needed (take with food) - Percocet 1 every 6 hours, as needed for moderate to severe pain - Recommend daily stool softener (Colace) while taking narcotic pain medication to prevent constipation and straining. Drink plenty of water daily. FOLLOW UP VISIT: - If not already scheduled, please call the office to schedule a two week follow-up appointment. Office number Your CT scan also showed large distended bladder with a bladder diverticulum (outpouching). During your appendectomy procedure we placed a daley catheter into your bladder and you had a lot of urine output about 1400 cc. Would recommend follow-up with your primary care physician or urology regarding CT scan findings. Pending Studies at Discharge: Yes (appendix pathology, will be reviewed at postop visit) Stand-Alone Forms: My [facility], Pain - Opioid Pain Management, Smoking Cessation Medications and DC Order Prescriptions: New oxycodone-acetaminophen 5-325 mg tablet 1 tab PO Q6H PRN (Reason: pain) Qty: 5 0RF Continued tamsulosin 0.4 mg capsule 0.4 mg PO HS 30 Days Qty: 30 11RF Discharge Orders: Discharge Order (Routine); Ordered 06/02/23 Ordered By: Leslee Gonzalez Admission Data Admit Date/Time: 06/01/23 23:27 Attending Provider: Veronika Ying Admit Provider: Veronika Ying Primary Care Provider: Tammy Palmer Other Providers: Veronika Ying Other Interventions: Discharge Summary Assessment (RN) Last Done: 06/02/23 16:28
== END 2023-06-02 17:26 | disposition home or self-care (01) ==
LOC: ED 21:07 → 3E 21:07